=== PATIENT | male | born 1985 | race Two or more races ===

== ENCOUNTER 2016-12-17 01:14 | Emergency (ER) | payer BC ==
[2016-12-28 07:20] VITALS: BMI 27.6
== END 2016-12-17 04:10 | disposition home or self-care (01) ==
LOC: D.ER 01:14
DX: M25.562 Pain in left knee (principal); M25.561 Pain in right knee

== ENCOUNTER 2016-12-18 08:36 | Emergency (ER) | payer BC ==
[2016-12-28 07:20] VITALS: BMI 27.6
== END 2016-12-18 09:29 | disposition home or self-care (01) ==
LOC: D.ER 08:36
DX: M25.562 Pain in left knee (principal); M25.561 Pain in right knee

== ENCOUNTER 2016-12-28 05:20 | Day surgery (SDC) | payer BC ==
[~2016-12-28] VITALS: Ht 167.6 cm; Wt 77.6 kg
[2016-12-28 07:20] VITALS: BP 116/74; Ht 167.6 cm; Wt 77.6 kg
[2016-12-28] MEDS ORDERED: HYDROCODONE-APA1 TAB PO (09:51)
--- NOTE | 2016-12-28 12:33 | NUR ---
CRUTCH TRAINING DONE, PATIENT IN PAIN RATE PAIN 10 NORCO 10 PO GIVEN FOR PAIN IV DC WITH CATHER TIP INTACT
--- NOTE | 2017-01-11 07:08 | OP ---
PATIENT NAME: DEEPA VARGAS MEDICAL RECORD: [id number] [facility] DATE: SURGEON: HANSA ABARCA MD DATE OF OPERATION: 12/28/2016 PREOPERATIVE DIAGNOSES: Bilateral knee chondromalacia and bilateral knee subchondral edema and fracture medially. POSTOPERATIVE DIAGNOSES: Bilateral knee chondromalacia and bilateral knee subchondral edema and fracture medially. PROCEDURE PERFORMED: Right knee arthroscopy with chondroplasty and bilateral knee subchondroplasty with AccuFill calcium phosphate placed in 5 syringe in each knee into the defects. SURGEON: Fabien Abarca MD. ANESTHESIA: General. CONDITION: The patient tolerated the procedure well, was transferred to the recovery room in stable condition at the termination of procedure. INDICATIONS: This is a 31-year-old gentleman with significant knee pain. His MRI showing significant medial subchondral swelling and lesions on both knees. These have been very painful. At his young age, we have discussed the options and wanting to proceed with the operative treatment. We discussed subchondroplasty. He understood and wished to proceed. We discussed risks, benefits, and alternatives including continued pain and he understood and wished to proceed. OPERATIVE REPORT: The patient was taken to the operating room and placed in supine position. General anesthesia was obtained. The bilateral knees prepped and draped. Once they are prepped and draped, portal sites were marked on the left knee, anterolateral for the scope and inflow, superior medial for the outflow. The patellofemoral joint was inspected. There was some chondromalacia, not significant, nothing down to bone. Coming down the medial side, he had some medial chondromalacia of medial femoral condyle, grade I to II type chondromalacia, no significant cartilage loss. ACL and PCL were notably intact. Placing in a [id number] position, there were no significant lesions, just some chondromalacia. I did debride some of the flaking off cartilage through it. Once this was accomplished, I went to place the trocar under C-arm guidance into the medial soft tissue lesion. A 5 cc or 5 syringe full of AccuFill were placed into the lesion. This was visualized to some degree on the C-arm with the changed in density. Once this was accomplished, I then put the scope back in the knee to ensure that none have extruding into the knee. I then waited the appropriate 10 minutes and waited for it to harden and then the trocar was removed. In similar fashion, the right knee had portal sites marked and injected anterolaterally portal. The portal was used for the scope and inflow, superomedially for the outflow, again some chondromalacia noted grade I to grade II/III type chondromalacia patellofemoral joint of the medial femoral condyle. These were debrided under visualization with a shaver and no significant tearing noted. Again, placed the trocar into the medial tibia and again filled it with 5 cc of AccuFill. Once this was accomplished, I again checked the knee to make sure there was no extrusion into the joint following which, again the appropriate time was waited before trocar was OPERATIVE REPORT [id number] DEEPA VARGAS removed. Both knees were dressed in a sterile fashion. He was awakened and transferred back to the recovery room in stable condition, having tolerated the procedure well. TRANSINT:[id number] Voice Confirmation ID: [id number] DOCUMENT ID: [id number] HANSA ABARCA MD at 0708 CC: [id number] DICTATION DATE: 01/08/17 1700 TAKE UP OPERATOR: 01/08/17 2254 [facility] 12/28/16 [facility] [address] [place] [address]
== END 2016-12-28 13:00 | disposition home or self-care (01) ==
LOC: D.OPS 05:20 → D.PAN 08:30 → D.OPS 11:00 → D.PAN 11:00 → D.OPS 13:00
DX: M22.42 Chondromalacia patellae, left knee (principal); M22.41 Chondromalacia patellae, right knee; S82.014A Nondisplaced osteochondral fracture of right patella, initial encounter for closed fracture

== ENCOUNTER 2018-10-13 14:08 | Emergency (ER) | payer BC ==
[~2018-10-13] VITALS: Ht 167.6 cm; Wt 82.7 kg
[~2018-10-13 14:08] MED LIST: HYDROCODONE-APA1 TAB PO
[2018-10-13 14:13] VITALS: Ht 167.6 cm; Wt 82.7 kg
[2018-10-13 14:59] LABS: BASOPHILS 0.2 % (0-2); EOSINOPHILS 0.4 % (0-7); HEMATOCRIT 42.8 % (42.0-54.0); HEMOGLOBIN 14.8 g/dL (13.5-17.5); IMMATURE GRANULOCYTES 0.2 % (0-5); LYMPHOCYTES 17.6 % (15-50); MCHC 34.6 g/dL (31.0-37.0); MCV 92.4 fL (80.0-100.0); MEAN PLATELET VOLUME 9.7 fL (7.4-10.4); MONOCYTES 7.7 % (2-11); NEUTROPHILS 73.9 % (40-80); PLATELET COUNT 282 10x3/uL (130-400); RBC 4.63 10x6/uL (4.20-6.10); RDW 13.1 % (11.5-14.5); WBC 11.4 10x3/uL (4.8-10.8)
[2018-10-13 15:05] LABS: ALBUMIN 3.9 g/dL (3.4-5.0); ALKALINE PHOSPHATASE 95 U/L (46-116); ALT (SGPT) 29 U/L (10-68); BILIRUBIN - TOTAL 0.29 mg/dL (0.2-1.3); CALC OSMOLALITY 282 mosm/kg (275-300); CALCIUM 9.1 mg/dL (8.5-10.1); CARBON DIOXIDE 25.9 mmol/L (21.0-32.0); CHLORIDE - SERUM 105 mmol/L (98-107); CREATININE - SERUM 1.1 mg/dL (0.6-1.3); GLUCOSE 105 mg/dL (74-106); POTASSIUM - SERUM 3.5 mmol/L (3.5-5.1); SODIUM 143 mmol/L (136-145); UREA NITROGEN 8 mg/dL (7-18); eGFR NON AFRICAN AMERICAN 82 mL/min (90-120)
[2018-10-13 15:15] LABS: CKMB 0.5 U/L (0.0-3.6); CREATINE KINASE 153 UL (21-232); MAGNESIUM - SERUM 1.6 mg/dL (1.8-2.4); TROPONIN-I < 0.017 ng/mL (0.000-0.060)
[2018-10-13 15:20] LABS: APTT 30.9 SECONDS (22.8-39.4); INR 0.99 (0.85-1.17); PROTIME 12.6 SECONDS (11.6-15.0)
[2018-10-13 16:17] VITALS: BP 118/84
== END 2018-10-13 16:19 | disposition home or self-care (01) ==
LOC: D.ER 14:08
PROVIDERS: Emergency Medicine
DX: R07.9 Chest pain, unspecified (principal); R00.0 Tachycardia, unspecified; F17.200 Nicotine dependence, unspecified, uncomplicated

== ENCOUNTER 2019-11-09 10:54 | Emergency (ER) | payer BC ==
[~2019-11-09] VITALS: Ht 167.6 cm; Wt 82.6 kg
[2019-11-09 11:01] VITALS: Ht 167.6 cm; Wt 82.6 kg
[2019-11-09 11:30] LABS: BASOPHILS 0.3 % (0-2); EOSINOPHILS 1.3 % (0-7); HEMATOCRIT 44.8 % (42.0-54.0); HEMOGLOBIN 15.5 g/dL (13.5-17.5); IMMATURE GRANULOCYTES 0.2 % (0-5); LYMPHOCYTES 25.5 % (15-50); MCH 31.8 pg (26.0-34.0); MCHC 34.6 g/dL (31.0-37.0); MCV 91.8 fL (80.0-100.0); MEAN PLATELET VOLUME 9.4 fL (7.4-10.4); MONOCYTES 5.2 % (2-11); NEUTROPHILS 67.5 % (40-80); PLATELET COUNT 264 10x3/uL (130-400); RBC 4.88 10x6/uL (4.20-6.10); RDW 12.5 % (11.5-14.5); WBC 6.4 10x3/uL (4.8-10.8)
[2019-11-09 11:38] LABS: APTT 30.3 SECONDS (22.8-39.4); CALC OSMOLALITY 282 mosm/kg (275-300); CALCIUM 8.9 mg/dL (8.5-10.1); CARBON DIOXIDE 25.4 mmol/L (21.0-32.0); CHLORIDE - SERUM 105 mmol/L (98-107); CREATININE - SERUM 1.2 mg/dL (0.6-1.3); GLUCOSE 110 mg/dL (74-106); INR 0.98 (0.85-1.17); POTASSIUM - SERUM 3.4 mmol/L (3.5-5.1); PROTIME 12.9 SECONDS (11.6-15.0); SODIUM 141 mmol/L (136-145); UREA NITROGEN 14 mg/dL (7-18); eGFR NON AFRICAN AMERICAN 73 mL/min (90-120)
[2019-11-09 12:05] LABS: ALBUMIN 3.9 g/dL (3.4-5.0); ALKALINE PHOSPHATASE 117 U/L (46-116); ALT (SGPT) 51 U/L (10-68); BILIRUBIN - TOTAL 0.65 mg/dL (0.2-1.3); CREATINE KINASE 203 UL (21-232); MAGNESIUM - SERUM 1.8 mg/dL (1.8-2.4); PROTEIN - SERUM 7.7 g/dL (6.4-8.2); TROPONIN-I < 0.017 ng/mL (0.000-0.060)
[2019-11-09] MEDS ORDERED: IBUPROFEN800 MG PO (14:43)
[2019-11-09] MEDS ORDERED: CYCLOBENZAPRINE10 MG PO (14:43)
[2019-11-09] MEDS ORDERED: ACETAMINOPHEN500 M1 PO (14:43)
[2019-11-09 15:38] VITALS: BP 114/79
== END 2019-11-09 15:40 | disposition home or self-care (01) ==
LOC: D.ER 10:54
PROVIDERS: Family Medicine
DX: R07.9 Chest pain, unspecified (principal); M79.18 Myalgia, other site